=== PATIENT | male | born 1995 | race Two or more races ===

== ENCOUNTER 2021-05-01 18:03 | Emergency (ER) | payer OTHER ==
[~2021-05-01] VITALS: Ht 180.3 cm; Wt 88.6 kg
[2021-05-01 19:57] VITALS: BP 109/55
== END 2021-05-01 19:59 | disposition home or self-care (01) ==
LOC: ER 18:04
DX: T67.5XXA Heat exhaustion, unspecified, initial encounter (principal); X30.XXXA Exposure to excessive natural heat, initial encounter; Y93.89 Activity, other specified; Y92.89 Other specified places as the place of occurrence of the external cause; Y99.8 Other external cause status
CPT/HCPCS: 82948; 93005; 99284